=== PATIENT | male | born 1995 | race American Indian/Alaskan Native ===

== ENCOUNTER 2016-03-20 16:43 | Emergency (ER) | payer SELFPAY ==
[2016-03-20 16:48] VITALS: BP 133/76
== END 2016-03-20 17:10 | disposition left against medical advice (07) ==
LOC: ED 16:43
DX: Z04.3 Encounter for examination and observation following other accident (principal); V89.2XXA Person injured in unspecified motor-vehicle accident, traffic, initial encounter; Y93.89 Activity, other specified; Y99.9 Unspecified external cause status; Y92.410 Unspecified street and highway as the place of occurrence of the external cause; Z53.21 Procedure and treatment not carried out due to patient leaving prior to being seen by health care provider

== ENCOUNTER 2020-05-27 13:15 | Emergency (ER) | payer OTHER, BC ==
[2020-05-27 13:26] VITALS: BP 139/62
[2020-05-27] MEDS ORDERED: IBUPROFEN 800 MG TAB PO ONE (14:26)
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
== END 2020-05-27 14:56 | disposition home or self-care (01) ==
LOC: ED 13:15
DX: S16.1XXA Strain of muscle, fascia and tendon at neck level, initial encounter (principal); J45.909 Unspecified asthma, uncomplicated; Z79.899 Other long term (current) drug therapy; V49.49XA Driver injured in collision with other motor vehicles in traffic accident, initial encounter; Y92.410 Unspecified street and highway as the place of occurrence of the external cause; Y93.89 Activity, other specified; Y99.8 Other external cause status
CPT/HCPCS: 99282

== ENCOUNTER 2021-09-03 13:36 | Emergency (ER) | payer BC, OTHER ==
[2021-09-03 13:56] VITALS: BP 100/53
== END 2021-09-04 23:42 | disposition left against medical advice (07) ==
LOC: ED 13:36
DX: R55 Syncope and collapse (principal); Z53.21 Procedure and treatment not carried out due to patient leaving prior to being seen by health care provider
CPT/HCPCS: 82962; 93005